=== PATIENT | male | born 1970 | race Caucasian/White ===

== ENCOUNTER 2017-03-19 22:53 | Emergency (ER) | payer MEDICAID, OTHER ==
[2017-03-19 23:01] VITALS: BP 142/104; PULSE 80; RESP 20; TEMP 98.1; O2SAT 95
--- NOTE | 2017-03-19 23:04 | EDPHY ---
H & P Stated Complaint: L humuerus pain, Time Seen by Provider: 03/19/17 23:04 HPI/ROS: HPI: This is a 46-year-old male presents with Chief Complaint: Left humerus pain Location: Left arm Quality: Injury Duration: Yesterday Signs and Symptoms: No bleeding, no radiation, no numbness, no weakness, + tingling, on no skin color changes, + decreased range of motion,no swelling, + pain Timing: Acute Severity: [id number] Context: Patient is right-hand dominant, was snowboarding yesterday, when he fell down and sustained injury to his left humerus. He went to [place] emergency room and diagnosed with a fracture of his left humerus. He was placed in a long-arm posterior splint and given a sling along with Percocet pain medications and advised to follow up with the [facility] on Tuesday. Patient reports that this evening he felt the tingling sensation in the area of fracture and he is concerned that something has moved or something is wrong in the area. He drove himself to the emergency room. He denies any fall/trauma since the accident. He does complain of some tingling in all 5 of his finger. He is able to move all 5 of his fingers. Modifying Factors: See above Comment: ROS: see HPI Constitutional: No fever, no chills, no weight loss Eyes: No blurred vision Respiratory: No shortness of breath, no cough Cardiovascular: No chest pain Gastrointestinal: No nausea, no vomiting no diarrhea Genitourinary: No dysuria Extremities: No myalgias Neurologic: No weakness, no numbness Skin: No rashes Hematologic: No bruising, no bleeding MEDICAL/SURGICAL/SOCIAL HISTORY: Medical history: Generally healthy. Does not take any regular medications. Surgical history: Denies Social history: Employed. CONSTITUTIONAL: Anxious adult white male, awake and alert, no obvious distress HEENT: Atraumatic and normocephalic, PERRL, EOMI. no globe entrapment, no raccoon eyes. no Starkey signs.Tympanic membranes clear. No tympanic membrane rupture. Nares patent; no septal hematoma. Oropharynx clear, no exudate and moist pink mucosa. No malocclusion. no dental trauma. Airway patent. No lymphadenopathy. NECK: supple, no midline tenderness, flexion 45 degrees, extension 45 degrees, right and left lateral flexion 45 degrees. No meningismus. Cardiovascular: Normal S1/S2, regular rate, regular rhythm, without murmur rub or gallop. PULMONARY/CHEST: Symmetrical and nontender. no crepitus. Clear to auscultation bilaterally. Good air movement. No accessory muscle usage. ABDOMEN: Soft, nondistended, nontender, no ecchymosis, no rebound, no guarding , no peritoneal signs, no masses or organomegaly. No CVAT. PELVIC: no pain with rocking; bilateral hips flexion 125 degrees, extension 30 degrees, with no pain internal rotation and no pain external rotation. BACK: No midline tenderness, no paraspinous spasm, deep tendon reflexes 2/2, no pain with straight leg raise EXTREMITIES: 2/2 radial pulses, left SHOULDER: Able to perform shoulder shrug ; axillary nerve intact. Left elbow: Long posterior splint in place. Left WRIST: Extension to 70, flexion to 80, radial deviation to 20 degree, ulnar deviation to 30, no scaphoid tenderness, no tenderness over ulnar styloid, no tenderness over radial styloid. Able to move all 5 fingers and light touch sensation intact. Good capillary refill. no clubbing, no cyanosis or edema. NEUROLOGICAL: no focal neuro deficits. GCS 15. SKIN: Warm and dry, no erythema. no rash. Source: Patient Exam Limitations: No limitations - Personal History Current Tetanus Diphtheria and Acellular Pertussis (TDAP): Yes - Medical/Surgical History Hx Asthma: No Hx Chronic Respiratory Disease: No Hx Diabetes: No Hx Cardiac Disease: No Hx Renal Disease: No Hx Cirrhosis: No Hx Alcoholism: No Hx HIV/AIDS: No Hx Splenectomy or Spleen Trauma: No - Social History Smoking Status: Never smoked Constitutional: Initial Vital Signs Temperature (C) 36.7 C 03/19/17 22:58 Heart Rate 80 03/19/17 22:58 Respiratory Rate 20 03/19/17 22:58 Blood Pressure 142/104 H 03/19/17 22:58 O2 Sat (%) 95 03/19/17 22:58 O2 Delivery Mode Room Air Allergies/Adverse Reactions: No Known Allergies Allergy (Unverified 03/19/17 22:57) Medical Decision Making - Diagnostics Imaging Results: Imaging Impressions Humerus X-Ray 03/19/17 23:10 Impression: Displaced mid diaphyseal fracture left humerus which has less displacement and angulation than seen previously. Nondisplaced fracture in the proximal metadiaphysis. ED Course/Re-evaluation: Left humerus xray, left elbow xray, oral medications X-ray my read shows improved reduction of mid humerus fracture; mild displacement still noted. Nondisplaced fracture in the proximal metadiaphysis. Patient will remain in long posterior Ortho Glass; sling; rice Already has prescription for pain medication Ortho follow-up No signs of neurovascular compromise/tenting of skin/compartment syndrome/ extremities and joints examined above and below area of concern and are neurovascularly intact. This patient was seen under the supervision of my secondary supervising physician. I evaluated care for this patient independently. Discussed this patient with Dr. Bueno who did not see the patient. Patient's presentation, labs/imaging, treatment and plan of care were discussed with secondary supervising physician. Differential Diagnosis: Differential diagnosis includes but is not limited to ligament injury, nerve injury, fragment movement, humerus fracture. Departure - Departure Disposition: Home, Routine, Self-Care Clinical Impression: Closed left humeral fracture Qualifiers: Encounter type: initial encounter Humerus Location: proximal Fracture morphology: other fracture Fracture alignment: displaced Qualified Code(s): S42.292A - Other displaced fracture of upper end of left humerus, initial encounter for closed fracture Condition: Good Instructions: ORIF of an Arm Fracture (DC), Arm Fracture in Adults (ED) Additional Instructions: Keep the splint and sling dry. Take Tylenol 650 mg every 4 hours and/or Ibuprofen 600 mg every 8 hours with food as needed for pain. Use Percocet every 6 hours as needed for severe/breakthrough pain. Do not use Tylenol and Percocet concominantly. Apply ice for 30 minutes at a time; 2-3 times per day for the next 1-[address] Bay's office on Tuesday morning for follow-up appointment on Tuesday or Tuesday. You will likely need surgery (ORIF) to repair your humeral fracture. Referrals: [facility] [Other] - As per Instructions Rajesh Bay MD [Medical Doctor] - As per Instructions
== END 2017-03-20 00:45 | disposition home or self-care (01) ==
DX: S42.292A Other displaced fracture of upper end of left humerus, initial encounter for closed fracture (principal); V00.311A Fall from snowboard, initial encounter; Y93.23 Activity, snow (alpine) (downhill) skiing, snowboarding, sledding, tobogganing and snow tubing